=== PATIENT | male | born 2000 | race Caucasian/White ===

== ENCOUNTER 2022-03-18 17:42 | Emergency (ER) | payer OTHER ==
[~2022-03-18] VITALS: Ht 170.2 cm; Wt 84.3 kg
[~2022-03-18 17:42] MED LIST: SERT50TA29 PO
[2022-03-18 19:09] LABS: HEMATOCRIT 44.5 % (42.0-52.0); HEMOGLOBIN 16.1 g/dl (13.5-17.5); MEAN CORPUSCULAR HEMOGLOBIN 30.4 pg (27.0-33.0); MEAN CORPUSCULAR HGB CONC 36.2 g/dl (32.0-36.5); PLATELET COUNT, AUTOMATED 381 10^3/uL (150-450); WHITE BLOOD COUNT 8.5 10^3/uL (4.0-10.0)
[2022-03-18 20:01] VITALS: BP 132/71
== END 2022-03-18 20:06 | disposition home or self-care (01) ==
LOC: M ED 17:42
DX: K62.5 Hemorrhage of anus and rectum (principal); F33.9 Major depressive disorder, recurrent, unspecified; F17.210 Nicotine dependence, cigarettes, uncomplicated